=== PATIENT | female | born 1995 | race Caucasian/White ===

== ENCOUNTER 2024-11-09 13:48 | Inpatient (IN) | payer SELFPAY ==
[~2024-11-09] VITALS: Ht 167.6 cm; Wt 78.9 kg
[2024-11-09 14:45] VITALS: PULSE 71; RESP 20; TEMP 98.2
[2024-11-09 15:45] LABS: BASOPHILS # (AUTO) 0.1 (0.0-0.1); BASOPHILS % 0.6 % (0.0-1.0); HEMATOCRIT 39.3 % (34.2-44.1); HEMOGLOBIN 13.4 g/dL (12.0-16.0); LYMPHOCYTES % 20.2 % (18.0-39.1); MEAN CORPUSCULAR HEMOGLOBIN 32.5 pg (28-32); MEAN CORPUSCULAR HGB CONC 34.1 g/dL (31-35); MEAN CORPUSCULAR VOLUME 95.4 fL (81-99); MONOCYTES # (AUTO) 0.4 (0.2-0.8); MONOCYTES % 4.5 % (4.4-11.3); NEUTROPHILS # (AUTO) 7.3 (2.1-6.9); NEUTROPHILS % 74.3 % (38.7-80.0); PLATELET COUNT 314 x10e3/uL (140-360); RED BLOOD COUNT 4.12 x10e6/uL (3.6-5.1); RED CELL DISTRIBUTION WIDTH 17.2 % (11.7-14.4); WHITE BLOOD COUNT 9.77 x10e3/uL (4.8-10.8)
[2024-11-09 15:47] LABS: INR 0.94; PROTHROMBIN TIME 13.4 seconds (11.9-14.5)
[2024-11-09 15:47] LABS: BILIRUBIN,URINE NEGATIVE (NEGATIVE); CLARITY,URINE SL CLOUDY (CLEAR); COLOR,URINE YELLOW (YELLOW); GLUCOSE, URINE NEGATIVE (NEGATIVE); KETONES,URINE NEGATIVE (NEGATIVE); LEUKOCYTE ESTERASE ,URINE MODERATE (NEGATIVE); NITRITE,URINE NEGATIVE (NEGATIVE); PH,URINE 6.5 (5 - 7); PROTEIN,URINE DIPSTICK NEGATIVE (NEGATIVE); URINE UROBILINOGEN 0.2 mg/dL (0.2 - 1)
[2024-11-09 15:48] LABS: PARTIAL THROMBOPLASTIN TIME 24.1 seconds (23.8-35.5)
[2024-11-09] MEDS: SODIUM CHLORIDE 0.9% 1000ML 1,000 ML IV STA (15:51)
[2024-11-09] MEDS: ONDANSETRON HCL INJ 2MG/ML 2ML 2 MG/ML VIAL IV STA (15:51)
[2024-11-09 15:58] LABS: ALANINE AMINOTRANSFERASE 58 IU/L (0-55); ALBUMIN/GLOBULIN RATIO 1.1 (0.8-2.0); ALKALINE PHOSPHATASE 99 IU/L (40-150); ANION GAP 17.6 mmol/L (8-16); BILIRUBIN,TOTAL 0.5 mg/dL (0.2-1.2); BLOOD UREA NITROGEN 6 mg/dL (7-26); BUN/CREATININE RATIO 8 (6-25); CALCIUM 8.7 mg/dL (8.4-10.2); CARBON DIOXIDE 20 mmol/L (22-29); CHLORIDE 103 mmol/L (98-107); CREATININE, SERUM 0.74 mg/dL (0.57-1.11); EST GLOMERULAR FILTRATION RATE 114 ML/MIN (>=60); GLUCOSE 97 mg/dL (74-118); LIPASE 33 U/L (8-78); MAGNESIUM 1.8 MG/DL (1.3-2.1); POTASSIUM 3.6 mmol/L (3.5-5.1); SODIUM 137 mmol/L (136-145); TOTAL PROTEIN 7.7 g/dL (6.5-8.1)
[2024-11-09] MEDS: KETOROLAC TROMETHAMINE 30 MG/ML VIAL IV STA (16:03)
[2024-11-09 16:07] LABS: BACTERIA,URINE MODERATE /HPF; RBC,URINE 0-5 /HPF (0-5)
[2024-11-09] MEDS ORDERED: IOPAMIDOL 370 MG/ML 100 ML INFUS..BTL INJ ONE (16:28)
[2024-11-09 20:00] VITALS: BP 109/70; PULSE 116; RESP 20; TEMP 98.1; O2SAT 100
[2024-11-09] MEDS: BENZOCAINE 20% SPR 60 ML CAN MT ONE (21:01)
[2024-11-09] MEDS: SODIUM CHLORIDE 0.9% 1000ML 1,000 ML IV SCH (21:18)
[2024-11-09 22:14] VITALS: BP 131/98; PULSE 82; RESP 18; TEMP 97.2; O2SAT 100
[2024-11-09 22:20] VITALS: BP 131/98; PULSE 82; RESP 18; TEMP 97.2; O2SAT 100
[2024-11-09] MEDS: ONDANSETRON HCL INJ 2MG/ML 2ML 2 MG/ML VIAL IV PRN (22:29)
[2024-11-09] MEDS: HYDROMORPHONE 1MG/1ML INJ IV PRN (22:30)
[2024-11-10] VITALS (8 sets, daily range): BP systolic 109–127; BP diastolic 69–87; PULSE 55–74; RESP 16–19; TEMP 97.6–98.6; O2SAT 97–100
[2024-11-10 05:20] LABS: BASOPHILS # (AUTO) 0.1 (0.0-0.1); BASOPHILS % 0.6 % (0.0-1.0); EOSINOPHILS # (AUTO) 0.1 (0.0-0.4); EOSINOPHILS % 0.7 % (0.0-6.0); HEMATOCRIT 34.4 % (34.2-44.1); HEMOGLOBIN 11.6 g/dL (12.0-16.0); LYMPHOCYTES # (AUTO) 3.2 (1.0-3.2); LYMPHOCYTES % 38.4 % (18.0-39.1); MEAN CORPUSCULAR HEMOGLOBIN 32.5 pg (28-32); MEAN CORPUSCULAR HGB CONC 33.7 g/dL (31-35); MEAN CORPUSCULAR VOLUME 96.4 fL (81-99); MONOCYTES # (AUTO) 0.6 (0.2-0.8); MONOCYTES % 6.9 % (4.4-11.3); NEUTROPHILS # (AUTO) 4.4 (2.1-6.9); NEUTROPHILS % 53.3 % (38.7-80.0); PLATELET COUNT 234 x10e3/uL (140-360); RED BLOOD COUNT 3.57 x10e6/uL (3.6-5.1); RED CELL DISTRIBUTION WIDTH 16.9 % (11.7-14.4); WHITE BLOOD COUNT 8.21 x10e3/uL (4.8-10.8)
[2024-11-10 05:42] LABS: ALBUMIN 3.3 g/dL (3.5-5.0); ALBUMIN/GLOBULIN RATIO 1.2 (0.8-2.0); ANION GAP 14.4 mmol/L (8-16); BILIRUBIN,TOTAL 0.6 mg/dL (0.2-1.2); CALCIUM 7.7 mg/dL (8.4-10.2); CREATININE, SERUM 0.75 mg/dL (0.57-1.11); POTASSIUM 3.4 mmol/L (3.5-5.1); TOTAL PROTEIN 6.1 g/dL (6.5-8.1)
[2024-11-10] MEDS ORDERED: FENTANYL CITRATE/PF 100MCG/2 ML INJ ONE (12:39)
[2024-11-10] MEDS ORDERED: PROPOFOL IV EMULSION 10 MG/ML 20 ML VIAL ONE (12:39)
[2024-11-10] MEDS ORDERED: LIDOCAINE HCL 2% LOCAL INJ 5 ML SDV VIAL INJ ONE (12:39)
[2024-11-10] MEDS ORDERED: ROCURONIUM BROMIDE 1 ML IV ONE ×2 (12:39→14:13)
[2024-11-10] MEDS ORDERED: METHOCARBAMOL 100MG/1ML 10ML VIAL ONE (12:43)
[2024-11-10] MEDS ORDERED: METOCLOPRAMIDE HCL 10 MG/2ML VIAL ONE (13:49)
[2024-11-10] MEDS ORDERED: FAMOTIDINE 20 MG/2 ML VIAL IV ONE (13:49)
[2024-11-10] MEDS ORDERED: DEXAMETHASONE SOD PHOS INJ 4 MG/ML SDV ONE (13:49)
[2024-11-10] MEDS ORDERED: ONDANSETRON HCL INJ 2MG/ML 2ML 2 MG/ML VIAL ONE (13:49)
[2024-11-10] MEDS ORDERED: HYDROMORPHONE 2MG/ML ONE (13:51)
[2024-11-10] MEDS ORDERED: ACETAMINOPHEN 1000 MG/100 ML 100 ML IV ONE (14:01)
[2024-11-10] MEDS ORDERED: NEOSTIGMINE 1 MG/ML 10ML VIAL ONE (14:37)
[2024-11-10] MEDS ORDERED: GLYCOPYRROLATE INJ 0.2 MG/ML VIAL ONE (14:37)
[2024-11-10] MEDS: SODIUM CHLORIDE 0.9% 250ML IRRIG IR SCH (15:00)
[2024-11-10] MEDS ORDERED: NALOXONE HCL INJ 0.4 MG/ML AMP IV PRN (15:00)
[2024-11-10] MEDS ORDERED: SUGAMMADEX SODIUM 200 MG/2 ML VIAL IV ONE (15:03)
[2024-11-10] MEDS: HYDROMORPHONE 0.2MG/ML-SOD CHL 30ML PCA SYRINGE IV ONE (15:53)
[2024-11-10] MEDS: HYDROMORPHONE 0.2MG/ML-SOD CHL 30ML PCA SYRINGE IV PRN (16:07)
[2024-11-10] MEDS: ROPIVACAINE/EPI/CLONIDINE/KET 50 ML SYRINGE INJ ONE (17:34)
[2024-11-11] VITALS (7 sets, daily range): BP systolic 112–120; BP diastolic 64–74; PULSE 68–81; RESP 17–18; TEMP 98–98.7; O2SAT 98–100
[2024-11-11 05:14] LABS: BASOPHILS % 0.1 % (0.0-1.0); HEMOGLOBIN 11.1 g/dL (12.0-16.0); LYMPHOCYTES # (AUTO) 0.6 (1.0-3.2); LYMPHOCYTES % 6.2 % (18.0-39.1); MEAN CORPUSCULAR HEMOGLOBIN 32.3 pg (28-32); MEAN CORPUSCULAR HGB CONC 32.6 g/dL (31-35); MEAN CORPUSCULAR VOLUME 98.8 fL (81-99); MONOCYTES # (AUTO) 0.6 (0.2-0.8); NEUTROPHILS # (AUTO) 8.7 (2.1-6.9); NEUTROPHILS % 87.1 % (38.7-80.0); PLATELET COUNT 234 x10e3/uL (140-360); RED BLOOD COUNT 3.44 x10e6/uL (3.6-5.1); RED CELL DISTRIBUTION WIDTH 16.3 % (11.7-14.4); WHITE BLOOD COUNT 9.95 x10e3/uL (4.8-10.8)
[2024-11-11] MEDS: KETOROLAC TROMETHAMINE 30 MG/ML VIAL IV PRN (05:41)
[2024-11-11 05:57] LABS: ANION GAP 15.2 mmol/L (8-16); BLOOD UREA NITROGEN < 5 mg/dL (7-26); CALCIUM 7.6 mg/dL (8.4-10.2); CARBON DIOXIDE 17 mmol/L (22-29); CHLORIDE 107 mmol/L (98-107); CREATININE, SERUM 0.61 mg/dL (0.57-1.11); EST GLOMERULAR FILTRATION RATE 126 ML/MIN (>=60); GLUCOSE 100 mg/dL (74-118); POTASSIUM 4.2 mmol/L (3.5-5.1); SODIUM 135 mmol/L (136-145)
[2024-11-11 06:01] LABS: BUN/CREATININE RATIO 8 (6-25)
[2024-11-11] MEDS ORDERED: HYDROMORPHONE 0.2MG/ML-SOD CHL 30ML PCA SYRINGE IV PRN (11:30)
[2024-11-11] MEDS: HYDROMORPHONE 1MG/1ML INJ IV PRN (12:33)
[2024-11-12 04:37] VITALS: BP 112/86; PULSE 69; RESP 16; TEMP 97.5; O2SAT 100
[2024-11-12 10:04] VITALS: BP 140/91; PULSE 80; RESP 22; TEMP 98.5; O2SAT 100
[2024-11-12 10:06] VITALS: BP 140/91; PULSE 80; RESP 22; TEMP 98.5; O2SAT 100
[2024-11-12 11:00] LABS: BASOPHILS % 0.5 % (0.0-1.0); EOSINOPHILS % 0.5 % (0.0-6.0); HEMOGLOBIN 9.9 g/dL (12.0-16.0); LYMPHOCYTES # (AUTO) 1.5 (1.0-3.2); LYMPHOCYTES % 24.3 % (18.0-39.1); MEAN CORPUSCULAR HGB CONC 31.9 g/dL (31-35); MEAN CORPUSCULAR VOLUME 100.3 fL (81-99); MONOCYTES # (AUTO) 0.4 (0.2-0.8); MONOCYTES % 6.3 % (4.4-11.3); NEUTROPHILS # (AUTO) 4.1 (2.1-6.9); NEUTROPHILS % 68.1 % (38.7-80.0); PLATELET COUNT 178 x10e3/uL (140-360); RED BLOOD COUNT 3.09 x10e6/uL (3.6-5.1); RED CELL DISTRIBUTION WIDTH 16.3 % (11.7-14.4); WHITE BLOOD COUNT 6.04 x10e3/uL (4.8-10.8)
[2024-11-12 11:17] LABS: ANION GAP 11.4 mmol/L (8-16); BLOOD UREA NITROGEN < 5 mg/dL (7-26); CARBON DIOXIDE 22 mmol/L (22-29); CHLORIDE 106 mmol/L (98-107); EST GLOMERULAR FILTRATION RATE 126 ML/MIN (>=60); GLUCOSE 92 mg/dL (74-118); SODIUM 136 mmol/L (136-145)
[2024-11-12 11:26] LABS: BUN/CREATININE RATIO 8 (6-25); POTASSIUM 3.4 mmol/L (3.5-5.1)
[2024-11-12 17:19] VITALS: BP 132/84; PULSE 84; RESP 20; TEMP 97.9; O2SAT 100
[2024-11-12] MEDS: MAGNESIUM/ALUMINUM/SIMETHICONE 30 ML UDC PO SCH (17:29)
[2024-11-12 20:00] VITALS: BP 124/85; PULSE 74; RESP 18; TEMP 97.2; O2SAT 95
[2024-11-13] VITALS: BP 125/83; PULSE 68; RESP 16; TEMP 97.2; O2SAT 100
[2024-11-13 06:07] VITALS: BP 123/94; PULSE 62; RESP 18; TEMP 97.9; O2SAT 100
[2024-11-13 06:15] LABS: BASOPHILS % 0.4 % (0.0-1.0); EOSINOPHILS # (AUTO) 0.1 (0.0-0.4); EOSINOPHILS % 1.2 % (0.0-6.0); HEMOGLOBIN 10.7 g/dL (12.0-16.0); LYMPHOCYTES # (AUTO) 1.5 (1.0-3.2); LYMPHOCYTES % 30.4 % (18.0-39.1); MEAN CORPUSCULAR HEMOGLOBIN 31.9 pg (28-32); MEAN CORPUSCULAR HGB CONC 32.4 g/dL (31-35); MEAN CORPUSCULAR VOLUME 98.5 fL (81-99); MONOCYTES # (AUTO) 0.4 (0.2-0.8); MONOCYTES % 7.5 % (4.4-11.3); NEUTROPHILS # (AUTO) 3.1 (2.1-6.9); NEUTROPHILS % 60.1 % (38.7-80.0); PLATELET COUNT 228 x10e3/uL (140-360); RED BLOOD COUNT 3.35 x10e6/uL (3.6-5.1); RED CELL DISTRIBUTION WIDTH 16.3 % (11.7-14.4); WHITE BLOOD COUNT 5.07 x10e3/uL (4.8-10.8)
[2024-11-13 06:50] LABS: ANION GAP 12.5 mmol/L (8-16); BLOOD UREA NITROGEN < 5 mg/dL (7-26); BUN/CREATININE RATIO 8 (6-25); CALCIUM 8.3 mg/dL (8.4-10.2); CARBON DIOXIDE 25 mmol/L (22-29); CHLORIDE 104 mmol/L (98-107); CREATININE, SERUM 0.61 mg/dL (0.57-1.11); EST GLOMERULAR FILTRATION RATE 126 ML/MIN (>=60); GLUCOSE 88 mg/dL (74-118); POTASSIUM 3.5 mmol/L (3.5-5.1); SODIUM 138 mmol/L (136-145)
[2024-11-13] MEDS: HYDROCODONE/APAP 7.5MG-325MG 1 EA TAB PO PRN (09:13)
[2024-11-13 09:24] VITALS: BP 139/90; PULSE 63; RESP 16; TEMP 97.5; O2SAT 100
[2024-11-13 09:29] VITALS: BP 139/90; PULSE 63; RESP 16; TEMP 97.5; O2SAT 100
== END 2024-11-13 12:20 | disposition home or self-care (01) | DRG 330 ==
LOC: ER 15:15 → ERHOLD 19:14 → MED/SURG 20:59
PROVIDERS: ADMIT Surgery; ATTEND Surgery
PROC: 0DS80ZZ Reposition Small Intestine, Open Approach (ICD-10-PCS; principal; 2024-11-10 13:33)
DX: K56.1 Intussusception (principal); N39.0 Urinary tract infection, site not specified; R53.81 Other malaise; Z88.5 Allergy status to narcotic agent
CPT/HCPCS: 36415; 74019; 74177; 80048; 80053; 81001; 83690; 83735; 84702; 85025; 85610; 85730; 87086; 99284; J1100; J1171; J1308; J1885; J2003; J2405; J2470; J2543; J2710; J2765; J2800; J7030; Q9967

== ENCOUNTER 2025-02-23 18:02 | Emergency (ER) | payer SELFPAY ==
[~2025-02-23] VITALS: Ht 167.6 cm; Wt 80.3 kg
[2025-02-23 19:16] LABS: BASOPHILS % 0.6 % (0.0-1.0); EOSINOPHILS % 0.6 % (0.0-6.0); LYMPHOCYTES % 32.1 % (18.0-39.1); MONOCYTES % 7.5 % (4.4-11.3); NEUTROPHILS % 59.0 % (38.7-80.0); RED CELL DISTRIBUTION WIDTH 15.3 % (11.7-14.4)
[2025-02-23 19:20] LABS: LEUKOCYTE ESTERASE ,URINE NEGATIVE (NEGATIVE); PROTEIN,URINE DIPSTICK NEGATIVE (NEGATIVE); URINE UROBILINOGEN 0.2 mg/dL (0.2 - 1)
[2025-02-23 19:23] LABS: INR 0.82
[2025-02-23 19:28] LABS: EPITHELIAL CELLS,URINE FEW /LPF
[2025-02-23 19:29] LABS: EST GLOMERULAR FILTRATION RATE 116.0 ML/MIN (>=60)
[2025-02-23 19:39] LABS: PREGNANCY TEST, URINE NEGATIVE (NEGATIVE)
[2025-02-23] MEDS ORDERED: SODIUM CHLORIDE 0.9% 100 ML ONE (22:13)
[2025-02-23] MEDS ORDERED: IOPAMIDOL 370 MG/ML 100 ML INFUS..BTL INJ ONE (22:13)
[2025-02-23] MEDS: SODIUM CHLORIDE 0.9% 1000ML 1,000 ML IV ONE (22:49)
[2025-02-23] MEDS: HYDROMORPHONE 1MG/1ML INJ IV STA (22:49)
[2025-02-23] MEDS: ONDANSETRON HCL INJ 2MG/ML 2ML 2 MG/ML VIAL IV STA (22:49)
[2025-02-23] MEDS ORDERED: PANTOPRAZOLE SO40 MG PO (23:32)
[2025-02-23] MEDS ORDERED: ONDANSETRON ODT4 MG SL (23:32)
[2025-02-23 23:41] VITALS: BP 138/96; PULSE 84; RESP 16; TEMP 98.2
[2025-02-24 00:35] VITALS: PULSE 78; RESP 17; TEMP 98; O2SAT 100
[2025-02-24] MEDS ORDERED: IOPAMIDOL 370 MG/ML 100 ML INFUS..BTL INJ ONE (06:25)
[2025-02-24] MEDS ORDERED: SODIUM CHLORIDE 0.9% 100 ML ONE (06:25)
== END 2025-02-24 00:40 | disposition home or self-care (01) ==
LOC: ER 22:06
DX: R11.2 Nausea with vomiting, unspecified (principal); R19.7 Diarrhea, unspecified; R10.9 Unspecified abdominal pain; K76.0 Fatty (change of) liver, not elsewhere classified; R16.0 Hepatomegaly, not elsewhere classified
CPT/HCPCS: 36415; 74174; 80053; 81001; 81025; 85025; 85610; 85730; 99284; J1171; J2405; J7030; J7050 ×2; Q9967 ×2